=== PATIENT | male | born 2000 | race Two or more races ===

== ENCOUNTER 2021-11-26 13:32 | Emergency (ER) | payer SELFPAY ==
[~2021-11-26] VITALS: Ht 172.7 cm; Wt 104.4 kg
[2021-11-26 13:46] VITALS: BP 104/43
[2021-11-26] MEDS ORDERED: IBUP800T27 PO (14:59)
[2021-11-26] MEDS ORDERED: IBUPROFEN 800 MG TAB PO ONE (15:00)
== END 2021-11-26 15:19 | disposition home or self-care (01) ==
LOC: ER 13:32
DX: S83.91XA Sprain of unspecified site of right knee, initial encounter (principal); F17.210 Nicotine dependence, cigarettes, uncomplicated; W19.XXXA Unspecified fall, initial encounter; Y93.89 Activity, other specified; Y92.89 Other specified places as the place of occurrence of the external cause; Y99.8 Other external cause status
CPT/HCPCS: 73562

== ENCOUNTER 2021-12-05 10:31 | Emergency (ER) | payer SELFPAY ==
[~2021-12-05 10:31] MED LIST: IBUP800T27 PO
== END 2021-12-05 11:57 | disposition left against medical advice (07) ==
LOC: ER 10:31
DX: Z02.79 Encounter for issue of other medical certificate (principal); Z53.21 Procedure and treatment not carried out due to patient leaving prior to being seen by health care provider